=== PATIENT | female | born 1955 | race Caucasian/White ===

== ENCOUNTER → 2024-06-10 08:09 | Outpatient (REF) | payer MEDICARE, SELFPAY | LOC: HWRAD 08:09 | PROVIDERS: ATTENDING PHYSICIAN Internal Medicine | DX: Z12.31 Encounter for screening mammogram for malignant neoplasm of breast (principal); Z13.820 Encounter for screening for osteoporosis | CPT/HCPCS: 77063; 77067; 77080 ==

== ENCOUNTER → 2025-02-02 16:50 | Outpatient (REF) | payer MEDICARE, SELFPAY | LOC: RAD 16:50 | PROVIDERS: ATTENDING PHYSICIAN Internal Medicine | DX: J10.1 Influenza due to other identified influenza virus with other respiratory manifestations (principal); R05.1 Acute cough | CPT/HCPCS: 71046 ==

== ENCOUNTER → 2025-04-20 09:06 | Outpatient (REF) | payer MEDICARE, SELFPAY | LOC: RCS 09:06 | PROVIDERS: ATTENDING PHYSICIAN Internal Medicine Cardiovascular Disease; FAMILY PHYSICIAN Internal Medicine | DX: I34.0 Nonrheumatic mitral (valve) insufficiency (principal) | CPT/HCPCS: 93306 ==

== ENCOUNTER → 2025-06-16 07:41 | Outpatient (REF) | payer MEDICARE, SELFPAY | LOC: HWWDC 07:41 | PROVIDERS: ATTENDING PHYSICIAN Internal Medicine | DX: Z12.31 Encounter for screening mammogram for malignant neoplasm of breast (principal) | CPT/HCPCS: 77063; 77067 ==